=== PATIENT | male | born 1990 | race Two or more races ===

== ENCOUNTER 2017-08-23 14:36 | Emergency (ER) | payer SELFPAY ==
[~2017-08-23] VITALS: Ht 177.8 cm; Wt 72.0 kg
[2017-08-23 15:10] VITALS: BP 144/98
== END 2017-08-23 18:49 | disposition home or self-care (01) ==
LOC: ER 14:36
DX: Q18.1 Preauricular sinus and cyst (principal); H60.13 Cellulitis of external ear, bilateral
CPT/HCPCS: 99283